=== PATIENT | female | born 1940 | race Caucasian/White ===

== ENCOUNTER 2019-01-27 20:03 | Emergency (ER) | payer MEDICARE, OTHER ==
[~2019-01-27] VITALS: Ht 157.5 cm; Wt 149.7 kg
[2019-01-27] MEDS ORDERED: POTCHL10ER PO (20:49)
[2019-01-27] MEDS ORDERED: FURO40 PO (20:49)
[2019-01-27] MEDS ORDERED: Prinivil10 MG PO (20:50)
[2019-01-27] MEDS ORDERED: Magnesium500 MG PO (20:51)
[2019-01-27] MEDS ORDERED: SIMV10 PO (20:52)
[2019-01-27] MEDS ORDERED: B-121000 MCG PO (20:53)
[2019-01-27] MEDS ORDERED: Vitamin D2000 UNIT PO (20:53)
[2019-01-27] MEDS ORDERED: OXYC10TA19 PO (20:54)
[2019-01-27] MEDS ORDERED: METCAR500 PO (20:55)
== END 2019-01-27 23:01 | disposition home or self-care (01) ==
LOC: ER 20:03
DX: M54.5 Low back pain (principal); G89.29 Other chronic pain; Z88.5 Allergy status to narcotic agent; Z79.899 Other long term (current) drug therapy
CPT/HCPCS: 99283

== ENCOUNTER 2019-01-29 07:54 | Emergency (ER) | payer MEDICARE, OTHER ==
[~2019-01-29] VITALS: Ht 157.5 cm; Wt 147.4 kg
[~2019-01-29 07:54] MED LIST: B-121000 MCG PO; FURO40 PO; METCAR500 PO; Magnesium500 MG PO; OXYC10TA19 PO; POTCHL10ER PO; Prinivil10 MG PO; SIMV10 PO; Vitamin D2000 UNIT PO
[2019-01-29] MEDS ORDERED: FURO40 PO (08:06)
[2019-01-29] MEDS ORDERED: Prinivil10 MG PO (08:06)
[2019-01-29] MEDS ORDERED: ACET325 PO (08:06)
[2019-01-29] MEDS ORDERED: POTA10T PO (08:06)
[2019-01-29] MEDS ORDERED: Magnesium500 M1 PO (08:07)
[2019-01-29] MEDS ORDERED: Milk Of Ma400 MG/5 M PO (08:07)
[2019-01-29] MEDS ORDERED: OXYCODONE HCL E10 MG (08:08)
[2019-01-29] MEDS ORDERED: Zocor20 MG PO (08:08)
[2019-01-29] MEDS ORDERED: METCAR500 PO (08:08)
[2019-01-29] MEDS ORDERED: CYAN500 PO (08:09)
[2019-01-29] MEDS ORDERED: ONDA4ODT (08:09)
[2019-01-29 08:35] LABS: BASOPHILS ABSOLUTE AUTO 0.02 K/mm3 (0.00-0.23); BASOPHILS PERCENT AUTO 0 % (0-2); EOSINOPHILS ABSOLUTE AUTO 0.28 K/mm3 (0.00-0.68); EOSINOPHILS PERCENT AUTO 3 % (0-6); Hematocrit 28.7 % (33.0-51.0); Hemoglobin 8.8 g/dL (11.5-16.0); IMMATURE GRAN ABSOLUTE AUTO 0.12 K/mm3 (0.00-0.10); IMMATURE GRAN PERCENT AUTO 1 % (0-1); LYMPHOCYTES ABSOLUTE AUTO 1.87 K/mm3 (0.84-5.20); LYMPHOCYTES PERCENT AUTO 18 % (21-46); MONOCYTES ABSOLUTE AUTO 1.01 K/mm3 (0.16-1.47); MONOCYTES PERCENT AUTO 10 % (4-13); Mean Corpuscular HGB 32.6 pg (26.0-34.0); Mean Corpuscular HGB Conc 30.7 g/dL (31.5-36.5); Mean Corpuscular Volume 106 fL (80-100); Mean Platelet Volume 10.9 fL (9.1-12.4); NEUTROPHILS ABSOLUTE AUTO 7.16 K/mm3 (1.96-9.15); NEUTROPHILS PERCENT AUTO 68 % (41-73); Platelet Count 161 K/mm3 (150-400); RDW Coefficient Variation 14.9 % (11.7-14.2); RDW Standard Deviation 58.4 fL (35.1-46.3); White Blood Cell Count 10.46 K/mm3 (4.00-11.30)
[2019-01-29 08:57] LABS: Alanine Aminotransfer (ALT/SGP 13 U/L (12-78); Albumin, Blood 2.8 g/dL (3.4-5.0); Albumin/Globulin Ratio 0.7 (0.8-1.8); Alk Phos 75 U/L (50-136); Anion Gap 4 mmol/L (6-16); Aspartate Aminotrans (AST/SGOT 16 U/L (12-37); Bilirubin, Total 0.6 mg/dL (0.1-1.0); Blood Urea Nitrogen 40 mg/dL (8-24); Bun/Creatinine Ratio 28.8 (12.0-20.0); CO2, Blood 30 mmol/L (21-32); Calcium, Blood 9.1 mg/dL (8.5-10.1); Chloride, Blood 106 mmol/L (98-108); Creatinine, Blood 1.39 mg/dL (0.40-1.00); Globulin, Blood 3.9 g/dL (2.2-4.0); Glomerular Filtration Rate 39 (60-); Glucose, Blood 127 mg/dL (70-99); Potassium, Blood 4.8 mmol/L (3.5-5.5); Sodium, Blood 140 mmol/L (136-145); Total Protein, Blood 6.7 g/dL (6.4-8.2); Troponin I <0.015 ng/mL (0.000-0.040)
== END 2019-01-29 12:28 | disposition home or self-care (01) ==
LOC: ER 07:54
PROVIDERS: Emergency Medicine
DX: R11.2 Nausea with vomiting, unspecified (principal); I10 Essential (primary) hypertension; Z88.5 Allergy status to narcotic agent; Z79.899 Other long term (current) drug therapy
CPT/HCPCS: 80053; 83690; 84484; 85025; 93005; 93010; 96360; 99284-25; J7030

== ENCOUNTER 2019-03-16 12:24 | Observation (INO) | payer MEDICARE, OTHER ==
[~2019-03-16] VITALS: Ht 157.5 cm; Wt 132.2 kg
[~2019-03-16 12:24] MED LIST changes: -Adult Glycerin1 EACH PR; -CHOL10002 PO; -CVS DISPOSABLE399 ML PR; -Chloraseptic177 ML PO; -DOXY100 PO; -Eq Liquid Anta769 ML PO; -FERSU300 PO; -MAGNESIUM GLUCO30 MG PO; -ONDA4 PO; -ONE DAILY COMP1 EACH PO; -OXYC5 PO; -Vitamin B-121000 MCG PO
[2019-03-16 13:22] LABS: BASOPHILS ABSOLUTE AUTO 0.03 K/mm3 (0.00-0.23); BASOPHILS PERCENT AUTO 0 % (0-2); EOSINOPHILS ABSOLUTE AUTO 0.07 K/mm3 (0.00-0.68); EOSINOPHILS PERCENT AUTO 1 % (0-6); Hematocrit 32.4 % (33.0-51.0); Hemoglobin 10.1 g/dL (11.5-16.0); IMMATURE GRAN ABSOLUTE AUTO 0.05 K/mm3 (0.00-0.10); IMMATURE GRAN PERCENT AUTO 1 % (0-1); LYMPHOCYTES ABSOLUTE AUTO 2.22 K/mm3 (0.84-5.20); LYMPHOCYTES PERCENT AUTO 23 % (21-46); MONOCYTES ABSOLUTE AUTO 1.09 K/mm3 (0.16-1.47); MONOCYTES PERCENT AUTO 11 % (4-13); Mean Corpuscular HGB 32.3 pg (26.0-34.0); Mean Corpuscular HGB Conc 31.2 g/dL (31.5-36.5); Mean Corpuscular Volume 104 fL (80-100); Mean Platelet Volume 10.2 fL (9.1-12.4); NEUTROPHILS ABSOLUTE AUTO 6.23 K/mm3 (1.96-9.15); NEUTROPHILS PERCENT AUTO 64 % (41-73); Platelet Count 147 K/mm3 (150-400); RDW Coefficient Variation 15.6 % (11.7-14.2); RDW Standard Deviation 58.8 fL (35.1-46.3); Red Blood Cell Count 3.13 M/mm3 (3.80-5.20); White Blood Cell Count 9.69 K/mm3 (4.00-11.30)
[2019-03-16] MEDS ORDERED: Prinivil10 MG PO (13:29)
[2019-03-16] MEDS ORDERED: FURO40 PO (13:29)
[2019-03-16 13:30] LABS: Source, Urine Catheter
[2019-03-16] MEDS ORDERED: MAGNESIUM GLUCO30 MG PO (13:30)
[2019-03-16] MEDS ORDERED: SIMV10 PO (13:30)
[2019-03-16] MEDS ORDERED: ONE DAILY COMP1 EACH PO (13:30)
[2019-03-16] MEDS ORDERED: Vitamin B-121000 MCG PO (13:31)
[2019-03-16] MEDS ORDERED: CHOL10002 PO (13:31)
[2019-03-16] MEDS ORDERED: DOXY100 PO (13:31)
[2019-03-16] MEDS ORDERED: FERSU300 PO (13:32)
[2019-03-16 13:42] LABS: Bilirubin, Urine Neg (Neg); Blood, Urine 1+ (Neg); Glucose Qualitative, Urine Neg (Neg); Ketones, Urine Neg (Neg); Leukocyte Esterase, Urine 1+ (Neg); Nitrite, Urine Neg (Neg); Protein, Urine 2+ (Neg); Urobilinogen, Urine 2+ (Normal)
[2019-03-16 13:44] LABS: Albumin, Blood 2.6 g/dL (3.4-5.0); Albumin/Globulin Ratio 0.6 (0.8-1.8); Bilirubin, Total 0.9 mg/dL (0.1-1.0); Bun/Creatinine Ratio 15.6 (12.0-20.0); Calcium, Blood 8.4 mg/dL (8.5-10.1); Creatinine, Blood 1.28 mg/dL (0.40-1.00); Globulin, Blood 4.2 g/dL (2.2-4.0); Total Protein, Blood 6.8 g/dL (6.4-8.2)
[2019-03-16 13:50] LABS: Appearance, Urine Clear (Clear); Color, Urine Yellow (P-Yellow)
[2019-03-16 13:53] LABS: Bacteria Few /hpf; Red Blood Cells, Urine Not Seen /hpf (0-2); Squamous Epithelial Cells Mod /hpf (Few); White Blood Cells, Urine Rare /hpf (0-5)
[2019-03-16 14:09] LABS: Hyaline Casts Rare /lpf (0-2)
[2019-03-16] MEDS ORDERED: POTA10T PO (16:43)
[2019-03-16] MEDS ORDERED: OXYC5 PO (17:21)
[2019-03-16] MEDS ORDERED: METCAR500 PO (17:21)
[2019-03-16] MEDS ORDERED: ONDA4 PO (17:22)
[2019-03-16] MEDS ORDERED: Chloraseptic177 ML PO (17:24)
[2019-03-16] MEDS ORDERED: CVS DISPOSABLE399 ML PR (17:25)
[2019-03-16] MEDS ORDERED: ACET325 PO (17:25)
[2019-03-16] MEDS ORDERED: Milk Of Ma400 MG/5 M PO (17:26)
[2019-03-16] MEDS ORDERED: Adult Glycerin1 EACH PR (17:27)
[2019-03-16] MEDS ORDERED: Eq Liquid Anta769 ML PO (17:30)
[2019-03-17] MEDS ORDERED: DOXY100 PO (00:45)
[2019-03-17 04:51] LABS: BASOPHILS ABSOLUTE AUTO 0.03 K/mm3 (0.00-0.23); BASOPHILS PERCENT AUTO 0 % (0-2); EOSINOPHILS ABSOLUTE AUTO 0.19 K/mm3 (0.00-0.68); EOSINOPHILS PERCENT AUTO 2 % (0-6); Hematocrit 29.6 % (33.0-51.0); Hemoglobin 9.3 g/dL (11.5-16.0); IMMATURE GRAN ABSOLUTE AUTO 0.11 K/mm3 (0.00-0.10); IMMATURE GRAN PERCENT AUTO 1 % (0-1); LYMPHOCYTES ABSOLUTE AUTO 2.97 K/mm3 (0.84-5.20); LYMPHOCYTES PERCENT AUTO 32 % (21-46); MONOCYTES ABSOLUTE AUTO 1.12 K/mm3 (0.16-1.47); MONOCYTES PERCENT AUTO 12 % (4-13); Mean Corpuscular HGB 32.2 pg (26.0-34.0); Mean Corpuscular HGB Conc 31.4 g/dL (31.5-36.5); Mean Corpuscular Volume 102 fL (80-100); NEUTROPHILS PERCENT AUTO 52 % (41-73); RDW Coefficient Variation 15.4 % (11.7-14.2); RDW Standard Deviation 57.8 fL (35.1-46.3); Red Blood Cell Count 2.89 M/mm3 (3.80-5.20); White Blood Cell Count 9.22 K/mm3 (4.00-11.30)
[2019-03-17 04:55] LABS: Mean Platelet Volume 11.1 fL (9.1-12.4); Platelet Count 80 K/mm3 (150-400)
[2019-03-17 05:15] LABS: Albumin, Blood 2.1 g/dL (3.4-5.0); Albumin/Globulin Ratio 0.6 (0.8-1.8); Bilirubin, Total 0.9 mg/dL (0.1-1.0); Bun/Creatinine Ratio 13.7 (12.0-20.0); Calcium, Blood 7.9 mg/dL (8.5-10.1); Creatinine, Blood 1.17 mg/dL (0.40-1.00); Globulin, Blood 3.8 g/dL (2.2-4.0); Potassium, Blood 4.3 mmol/L (3.5-5.5); Total Protein, Blood 5.9 g/dL (6.4-8.2)
--- NOTE | 2019-03-17 05:16 | NUR ---
SHIFT SUMMARY PT A&O X4 T/O SHIFT. NO ACUTE CHANGES. PT REQUESTED TO BE FLAT ON BACK D/T RESTRICTIONS FROM BACK SURG IN JANUARY; BEDREST MULTI-LAYER FOAM DRESSING TO COCCYX. ABD SOFT; BT X4; PT DENIES SOB, CP, NAUSEA AND PAIN T/O SHIFT; PT ON ROOM AIR. PT NPO POST MIDNIGHT; ORAL SWABS AND MOUTH WASH AT BEDSIDE. SCD'S TO BLE'S. CALL LIGHT IN REACH; PT DEMONSTRATES USE. WCTM UNTIL REPORT TO DAY SHIFT RN.
--- NOTE | 2019-03-17 11:09 | NUR ---
Patient is lying in bed and alert. 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 Patient shares about her mely (Holiness), her family and her best friend, Aneta who has had a stroke and a heart attack and is in a rehabilitation center. Patient also shares a dream she had in which she was told that God is not done with her on this planet yet. I listen empathically, provide spiritual guidance and presurgical prayer. Patient is then transferred to the surgical unit. I will continue to be available to patient.
--- NOTE | 2019-03-17 11:23 | NUR ---
PT INTO SDS VIA KIM FROM SURGICAL. HOVER MAT PLACED UNDER PATEITN DUE TO LIMITED MOBILITY. History, Chart, Medications and Allergies reviewed before start of procedure.Patient confirms NPO status and agrees with scheduled surgery. Surgical site prepped with 2% Chlorhexidine cloth wipe.
--- NOTE | 2019-03-17 12:31 | NUR ---
WEDPEGGY RING REMOVED FOR SURGERY AND WALKED DOWN TO PATEINTS ROOM, LEFT NEXT TO CELL PHONE PER PATIENT REQUEST.
--- NOTE | 2019-03-17 13:18 | NUR ---
03/17/19 1318 Meenakshi Barry PT ON SCHEDULED ANTIBIOTICS
--- NOTE | 2019-03-17 15:35 | NUR ---
PATIENT RETURNED TO ROOM AT THIS TIME, A&O. VSS. PATIENT DENIES NAUSEA. STATES ABD "A LITTLE SORE...SO MUCH BETTER THAN BEFORE." DENIES NEED FOR PAIN MED. ABD WITH STERI STRIPS X 4, D&I. HRR. LS CLEAR, DECREASED IN BASES. O2 @ 2L VIA NC. BT'S HYPO. PATIENT C/O R SHOULDER DISCOMFORT, HEATING PAD APPLIED. BRUISE NOTED UNDER L EYE. CONT TO MONITOR.
--- NOTE | 2019-03-17 19:00 | NUR ---
SHIFT SUMMARY PATIENT HAS DENIED NEED FOR PAIN MED SINCE RETURNING TO ROOM FROM PACU. TOLERATING DIET. STATES R SHOULDER PAIN IMPROVED WITH K PAD. VSS. STERI STRIPS INTACT TO ABD X 4. NO ACUTE CHANGES.
[2019-03-18 04:41] LABS: BASOPHILS ABSOLUTE AUTO 0.01 K/mm3 (0.00-0.23); BASOPHILS PERCENT AUTO 0 % (0-2); EOSINOPHILS PERCENT AUTO 0 % (0-6); Hematocrit 28.4 % (33.0-51.0); Hemoglobin 8.6 g/dL (11.5-16.0); IMMATURE GRAN ABSOLUTE AUTO 0.04 K/mm3 (0.00-0.10); IMMATURE GRAN PERCENT AUTO 0 % (0-1); LYMPHOCYTES ABSOLUTE AUTO 1.99 K/mm3 (0.84-5.20); LYMPHOCYTES PERCENT AUTO 18 % (21-46); MONOCYTES ABSOLUTE AUTO 0.85 K/mm3 (0.16-1.47); MONOCYTES PERCENT AUTO 8 % (4-13); Mean Corpuscular HGB 32.8 pg (26.0-34.0); Mean Corpuscular HGB Conc 30.3 g/dL (31.5-36.5); Mean Platelet Volume 10.5 fL (9.1-12.4); NEUTROPHILS PERCENT AUTO 74 % (41-73); Platelet Count 141 K/mm3 (150-400); RDW Coefficient Variation 15.4 % (11.7-14.2); RDW Standard Deviation 61.4 fL (35.1-46.3); Red Blood Cell Count 2.62 M/mm3 (3.80-5.20); White Blood Cell Count 11.29 K/mm3 (4.00-11.30)
[2019-03-18 04:42] LABS: Mean Corpuscular Volume 108 fL (80-100)
[2019-03-18 05:00] LABS: Albumin/Globulin Ratio 0.5 (0.8-1.8); Bilirubin, Total 0.8 mg/dL (0.1-1.0); Bun/Creatinine Ratio 16.5 (12.0-20.0); Calcium, Blood 7.9 mg/dL (8.5-10.1); Creatinine, Blood 1.27 mg/dL (0.40-1.00); Globulin, Blood 3.7 g/dL (2.2-4.0); Potassium, Blood 4.5 mmol/L (3.5-5.5); Total Protein, Blood 5.7 g/dL (6.4-8.2)
--- NOTE | 2019-03-18 06:22 | NUR ---
SUMMARY NO ACUTE CHANGES NOTED. PT IS TOLERATING PO INTAKE, VOIDING WNL. PAIN MANAGED WITH 5 MG OXYCODONE. VSS, ON ROOM AIR. CALLS PRN. CALL LIGHT IN REACH
--- NOTE | 2019-03-18 13:25 | NUR ---
THIS RN RECIEVED REPORT FROM OTHER RN AND IS ASSUMING CARE OF PT AT THIS TIME.
--- NOTE | 2019-03-18 15:21 | NUR ---
REPORT GIVEN TO OTHER CONNIE Kelley WHO IS TAKING OVER CARE AT THIS TIME.
--- NOTE | 2019-03-18 16:26 | NUR ---
ASSUMED CARE OF PT, RESTING IN BED, DENIES ANY PAIN OR ANY DISCOMFORT AT THIS TIME, CONT. TO MONITOR FOR ANY CHANGES.
--- NOTE | 2019-03-18 18:42 | NUR ---
SUMMARY DR. YOUNG IN TO SEE PT, PT C/O R SHOULDER PAIN, STATES PAIN IS GAS PAIN PER DR. YOUNG, TYLENOL GIVEN FOR PAIN, DENIES ANY OTHER DISCOMFORT, NO ACUTE CHANGES THIS SHIFT.
[2019-03-19 04:17] LABS: BASOPHILS ABSOLUTE AUTO 0.02 K/mm3 (0.00-0.23); BASOPHILS PERCENT AUTO 0 % (0-2); EOSINOPHILS ABSOLUTE AUTO 0.35 K/mm3 (0.00-0.68); EOSINOPHILS PERCENT AUTO 4 % (0-6); Hematocrit 27.6 % (33.0-51.0); Hemoglobin 8.2 g/dL (11.5-16.0); IMMATURE GRAN ABSOLUTE AUTO 0.03 K/mm3 (0.00-0.10); IMMATURE GRAN PERCENT AUTO 0 % (0-1); LYMPHOCYTES ABSOLUTE AUTO 3.41 K/mm3 (0.84-5.20); LYMPHOCYTES PERCENT AUTO 36 % (21-46); MONOCYTES ABSOLUTE AUTO 0.86 K/mm3 (0.16-1.47); MONOCYTES PERCENT AUTO 9 % (4-13); Mean Corpuscular HGB 32.2 pg (26.0-34.0); Mean Corpuscular HGB Conc 29.7 g/dL (31.5-36.5); Mean Corpuscular Volume 108 fL (80-100); Mean Platelet Volume 10.5 fL (9.1-12.4); NEUTROPHILS ABSOLUTE AUTO 4.69 K/mm3 (1.96-9.15); NEUTROPHILS PERCENT AUTO 50 % (41-73); Platelet Count 149 K/mm3 (150-400); RDW Coefficient Variation 15.7 % (11.7-14.2); RDW Standard Deviation 62.9 fL (35.1-46.3); Red Blood Cell Count 2.55 M/mm3 (3.80-5.20); White Blood Cell Count 9.36 K/mm3 (4.00-11.30)
--- NOTE | 2019-03-19 06:35 | NUR ---
POD 2 D/P LAP KISHAN. PT VSS T/O NIGHT. PAIN MGD W/PO PAIN MEDS W/REP RELIEF. DRESSINGS CDI. PT PATIENCE PO DIET, NO C/O N/V. BT ACTIVE, PT REP NO FLATUS YET, IS VOIDING URINE W/O DIFFICULTY. PT UP OOB W/FWW+1 ASSIST, IS USING CALL LIGHT FOR ASSISTANCE, WILL CONT TO MONITOR UNTIL REP GIVEN TO ONCOMING RN.
--- NOTE | 2019-03-19 12:20 | NUR ---
DISCHARGE: PT EATING AND DRINKING. PT VOIDING. PASSING GAS. PT DISCHARGED BACK TO [facility]. PT SENT WITH BELONGINGS. PT SENT WITH PAPERWORK INCLUDING SCRIPT. CASE MANAGEMENT ASSISTED WITH PT'S DISCHARGE. PT OUT WITH TRANSPORT. CASE MGMT REPORTS NOTIFYING FAMILIY. REPORT WAS GIVEN TO JASBIR AT [facility].
== END 2019-03-19 12:20 ==
LOC: ER 12:24 → SURS 12:25 → ER 17:52 → SURS 17:52 → ER 03-17 12:24 → SURS 03-17 12:24
PROVIDERS: Hospitalist; Internal Medicine; Surgery; ADMIT Hospitalist
PROC: BF13YZZ Fluoroscopy of Gallbladder and Bile Ducts using Other Contrast (ICD-10-PCS; principal; 2019-03-17 12:00)
PROC: 0FT44ZZ Resection of Gallbladder, Percutaneous Endoscopic Approach (ICD-10-PCS; principal; 2019-03-17 12:00)
DX: K80.12 Calculus of gallbladder with acute and chronic cholecystitis without obstruction (principal); I12.9 Hypertensive chronic kidney disease with stage 1 through stage 4 chronic kidney disease, or unspecified chronic kidney disease; N18.3 Chronic kidney disease, stage 3 (moderate); D63.1 Anemia in chronic kidney disease; D69.6 Thrombocytopenia, unspecified; R53.1 Weakness
CPT/HCPCS: 36415; 74300; 76705; 80053; 81001; 83690; 85025; 87086; 88304; 93005; 93010; 96361; 96365; 96366; 96375; 97161; 97165; 97530; 99285-25; A9270; C1729; G0378; J0694; J1100; J1885; J2250; J2405; J2704; J2710; J2765; J3010; J7030; J7120; P9612

== ENCOUNTER → 2019-03-16 | Outpatient (CLI) | payer MEDICARE, OTHER ==
[~2019-03-16] MED LIST changes: +ACET325 PO; +Adult Glycerin1 EACH PR; +CHOL10002 PO; +CVS DISPOSABLE399 ML PR; +CYAN500 PO; +Chloraseptic177 ML PO; +DOXY100 PO; +Eq Liquid Anta769 ML PO; +FERSU300 PO; +MAGNESIUM GLUCO30 MG PO; +Magnesium500 M1 PO; +Milk Of Ma400 MG/5 M PO; +ONDA4 PO; +ONDA4ODT; +ONE DAILY COMP1 EACH PO; +OXYC5 PO; +OXYCODONE HCL E10 MG; +POTA10T PO; +Vitamin B-121000 MCG PO; +Zocor20 MG PO
[2019-03-16 11:26] LABS: BASOPHILS ABSOLUTE AUTO 0.02 K/mm3 (0.00-0.23); BASOPHILS PERCENT AUTO 0 % (0-2); EOSINOPHILS ABSOLUTE AUTO 0.09 K/mm3 (0.00-0.68); EOSINOPHILS PERCENT AUTO 1 % (0-6); Hematocrit 31.3 % (33.0-51.0); Hemoglobin 9.7 g/dL (11.5-16.0); IMMATURE GRAN ABSOLUTE AUTO 0.04 K/mm3 (0.00-0.10); IMMATURE GRAN PERCENT AUTO 0 % (0-1); LYMPHOCYTES ABSOLUTE AUTO 2.41 K/mm3 (0.84-5.20); LYMPHOCYTES PERCENT AUTO 26 % (21-46); MONOCYTES ABSOLUTE AUTO 1.04 K/mm3 (0.16-1.47); MONOCYTES PERCENT AUTO 11 % (4-13); Mean Corpuscular HGB 32.1 pg (26.0-34.0); Mean Corpuscular Volume 104 fL (80-100); Mean Platelet Volume 10.5 fL (9.1-12.4); NEUTROPHILS ABSOLUTE AUTO 5.86 K/mm3 (1.96-9.15); NEUTROPHILS PERCENT AUTO 62 % (41-73); Platelet Count 141 K/mm3 (150-400); RDW Coefficient Variation 15.6 % (11.7-14.2); RDW Standard Deviation 58.4 fL (35.1-46.3); Red Blood Cell Count 3.02 M/mm3 (3.80-5.20); White Blood Cell Count 9.46 K/mm3 (4.00-11.30)
[2019-03-16 11:41] LABS: Albumin, Blood 2.5 g/dL (3.4-5.0); Albumin/Globulin Ratio 0.6 (0.8-1.8); Bilirubin, Total 1.1 mg/dL (0.1-1.0); Bun/Creatinine Ratio 16.2 (12.0-20.0); Calcium, Blood 8.4 mg/dL (8.5-10.1); Creatinine, Blood 1.3 mg/dL (0.40-1.00); Potassium, Blood 3.7 mmol/L (3.5-5.5); Total Protein, Blood 6.5 g/dL (6.4-8.2)
== END | disposition home or self-care (01) ==
LOC: LAB RH 11:12 → EDSTATUS 11:42
DX: H80 Otosclerosis (principal)
CPT/HCPCS: 80053; 82150; 83690; 85025